=== PATIENT | male | born 1985 | race Caucasian/White ===

== ENCOUNTER 2017-11-04 20:42 | Emergency (ER) | payer OTHER ==
[2017-11-04] MEDS ORDERED: IPRATROPIUM/ALBUTEROL 3 ML DEYVIAL ONE (20:57)
[2017-11-04] MEDS ORDERED: IPRATROPIUM/ALBUTEROL 3 ML DEYVIAL IH ONE (20:59)
--- NOTE | 2017-11-04 21:06 | EDPHY ---
H & P Stated Complaint: COUGH AND COLD LIKE SX 5 DAYS, NOW WITH BODY ACHES FROM COUGHING Time Seen by Provider: 11/04/17 21:05 HPI/ROS: HPI: This is a 32-year-old male who presents with Chief Complaint: COUGH AND COLD LIKE SX 5 DAYS, NOW WITH BODY ACHES FROM COUGHING Location: Chest Quality: Cough Duration: 5 days Signs and Symptoms: no fever, no nausea, no vomiting, no diarrhea, no urinary symptoms, no chest pain, no shortness of breath, no wheezing, no cough, no sore throat, no neck stiffness, no joint pain, no swollen glands, no ear pain, no rash Timing: Worsening Severity: Moderate Context: Patient is nontobacco user presents with worsening cough nonproductive in nature over the last 5 days. He reports that he felt body aches and had upper respiratory symptoms approximately 1 week ago. Yesterday he had harsh, productive cough accompanied by sore throat and losing his voice. He reports the drink plenty of fluids, mushroom brought, hot teas and rested hoping to improve his symptoms. This morning he woke up feeling worse. No history of lung disease. Modifying Factors: [id number] medications without relief Comment: ROS: see HPI Constitutional: + fever, no chills, no weight loss Eyes: No blurred vision Respiratory: No shortness of breath, + cough Cardiovascular: No chest pain, no palpitations Gastrointestinal: No nausea, no vomiting, no diarrhea, no hematemesis, no blood in stool Genitourinary: No dysuria, no blood in urine Extremities: No myalgias, no edema Neurologic: No weakness, no numbness Skin: No rashes, no petechiae Hematologic: No bruising, no bleeding MEDICAL/SURGICAL/SOCIAL HISTORY: Medical history: Hypertension Surgical history: Denies Social history: Infrequent Tobacco user. Family history noncontributory. CONSTITUTIONAL: Pleasant adult white male, awake and alert, no obvious distress HEENT: Atraumatic and normocephalic, PERRL, EOMI. Tympanic membranes clear. Nares patent; no rhinorrhea. Oropharynx clear, no tonsillar hypertrophy; uvula midline no exudate and moist pink mucosa. Airway patent. No lymphadenopathy. No meningismus. Cardiovascular: Normal S1/S2, regular rate, regular rhythm, without murmur rub or gallop. PULMONARY/CHEST: Symmetrical and nontender. Coarseness bilaterally. Good air movement. No accessory muscle usage. ABDOMEN: Soft, nondistended, nontender, no rebound, no guarding, no peritoneal signs, no masses or organomegaly. No CVAT. EXTREMITIES: 2/2 pulses, strength 5/5, no deformities, no clubbing, no cyanosis or edema. NEUROLOGICAL: no focal neuro deficits. GCS 15. SKIN: Warm and dry, no erythema. no rash. Good capillary refill. Source: Patient Exam Limitations: No limitations - Personal History Current Tetanus/Diphtheria Vaccine: Yes Current Tetanus Diphtheria and Acellular Pertussis (TDAP): Yes - Medical/Surgical History Hx Asthma: No Hx Chronic Respiratory Disease: No Hx Diabetes: No Hx Cardiac Disease: No Hx Renal Disease: No Hx Cirrhosis: No Hx Alcoholism: No Hx HIV/AIDS: No Hx Splenectomy or Spleen Trauma: No Other PMH: HTN - Social History Smoking Status: Light smoker Constitutional: Initial Vital Signs Temperature (C) 36.9 C 11/04/17 20:47 Heart Rate 83 11/04/17 20:47 Respiratory Rate 18 11/04/17 20:47 Blood Pressure 132/106 H 11/04/17 20:47 O2 Sat (%) 96 11/04/17 20:47 O2 Delivery Mode Room Air Allergies/Adverse Reactions: No Known Allergies Allergy (Unverified 11/04/17 20:50) Home Medications: Medication Instructions Recorded Albuterol Sulfate [Proair Hfa] 1 - 2 puffs IH Q4 PRN #1 hfa.aer.ad 11/04/17 Benzonatate [Tessalon Pearles (RX)] 100 mg PO Q6 PRN #12 cap 11/04/17 Clarithromycin [Biaxin (*)] 500 mg PO BID #13 tab 11/04/17 Medical Decision Making - Diagnostics Imaging Results: Imaging Impressions Chest X-Ray 11/04/17 21:06 Impression: Suspect airways disease with no superimposed pneumonia identified. ED Course/Re-evaluation: Vital signs reviewed and stable upon arrival. No hypoxia/respiratory distress. Coarseness in lungs heard; DuoNeb given with improved aeration Given Decadron, Tessalon Perles and Biaxin Chest x-ray my read shows no opacity, no effusion, no pneumothorax. + airway disease noted This patient was seen under the supervision of my secondary supervising physician. I evaluated care for this patient independently. Differential Diagnosis: Differential diagnosis includes but is not limited to whooping cough, pneumonia , bronchitis, upper respiratory infection, laryngitis. - Data Points Medications Given: Discontinued Medications Albuterol/Ipratropium (Duoneb) 3 ml IH EDNOW ONE Stop: 11/04/17 21:00 Last Admin: 11/04/17 21:01 Dose: 3 ml Benzonatate (Tessalon Pearles) 200 mg PO EDNOW ONE Stop: 11/04/17 21:12 Last Admin: 11/04/17 21:23 Dose: 200 mg Clarithromycin (Biaxin) 500 mg PO ONCE ONE PRN Reason: Protocol Stop: 11/05/17 21:13 Last Admin: 11/04/17 21:56 Dose: 500 mg Dexamethasone (Decadron) 8 mg PO EDNOW ONE Stop: 11/04/17 21:12 Last Admin: 11/04/17 21:23 Dose: 8 mg Departure - Departure Disposition: Home, Routine, Self-Care Clinical Impression: Acute bronchitis, bacterial Condition: Good Instructions: Acute Bronchitis (ED) Additional Instructions: Consume a minimum of 8-10 glasses of water or electrolyte fluid replacement drinks that include Gatorade, Powerade, Pedialyte. Rest as much as possible until you are feeling better. Take all medications as directed until complete. Please wash your hands frequently, cover your cough, and stay home until you are symptom free. Return to the ER immediately if you experience fevers/chills, shortness of breath, abdominal pain, inability to tolerate oral intake, or any other symptoms that concern you. Referrals: [facility],. [Clinic] - 5-7 days, if not improved Prescriptions: Albuterol Sulfate [Proair Hfa] 1 - 2 puffs IH Q4 PRN #1 hfa.aer.ad PRN Reason: Short Of Breath/Dyspnea Benzonatate [Tessalon Pearles (RX)] 100 mg PO Q6 PRN #12 cap PRN Reason: Cough, Moderate Clarithromycin [Biaxin (*)] 500 mg PO BID #13 tab
[2017-11-04] MEDS ORDERED: BENZONATATE 100 MG CAP PO ONE (21:11)
[2017-11-04] MEDS ORDERED: DEXAMETHASONE 4 MG TAB PO ONE (21:11)
[2017-11-04 22:02] VITALS: BP 135/101
[2017-11-05] MEDS ORDERED: CLARITHROMYCIN 500 MG TAB PO ONE (21:12)
== END 2017-11-04 21:59 | disposition home or self-care (01) ==
DX: J20.8 Acute bronchitis due to other specified organisms (principal); B96.89 Other specified bacterial agents as the cause of diseases classified elsewhere; I10 Essential (primary) hypertension; F17.200 Nicotine dependence, unspecified, uncomplicated